=== PATIENT | male | born 1980 | race Caucasian/White ===

== ENCOUNTER 2016-08-31 08:23 | Emergency (ER) ==
[2016-08-31 08:26] VITALS: BP 143/82; TEMP 97.3; BMI 27.2
[2016-08-31] MEDS ORDERED: DECADRON 4 MG/ML SDV IM STA (08:31)
--- NOTE | 2016-08-31 08:34 | ED.PDOC ---
General ED Provider: Dr. ANA SCOTT-ER Chief Complaint: Bite Stated Complaint: i got stung by a wasp Time Seen by Physician: 08:33 Mode of Arrival: Walk-In Information Source: Patient Exam Limitations: No limitations Primary Care Provider: [facility] Nursing and Triage Documentation Reviewed and Agree: Yes Skin Complaint Exam - Skin/Soft Tissue Complaint/Exam Onset/Duration: yesterday Symptoms Are: Still present Timing: Constant Initial Severity: Mild Current Severity: Mild Location: right hand Character: Reports: Redness, Swelling, Raised, Painful Aggravating: Reports: None Alleviating: Reports: None Associated Signs and Symptoms: Reports: Tenderness, Red streaks. Denies: Fever , Chills, Itching, Drainage, Bruising, Joint swelling Related History: Reports: Insect bite/sting Related Surgical History: Reports: None Recent Exposure to Others w/Similar Symptoms: No Skin Findings: Present: Erythema Joint Tenderness Present: No Differential Diagnoses: Other Review of Systems - Review Of Systems Constitutional: Reports: No symptoms Eyes: Reports: No symptoms Ears, Nose, Mouth, Throat: Reports: No symptoms Respiratory: Reports: No symptoms Cardiac: Reports: No symptoms GI: Reports: No symptoms : Reports: No symptoms Musculoskeletal: Reports: No symptoms Skin: Reports: Lumps Neurological: Reports: No symptoms Endocrine: Reports: No symptoms Hematologic/Lymphatic: Reports: No symptoms All Other Systems: Reviewed and Negative Past Medical History - Past Medical History Previously Healthy: Yes Endocrine: Reports: None, Dyslipidemia Cardiovascular: Reports: Hypertension Respiratory: Reports: None Hematological: Reports: None Gastrointestinal: Reports: GERD Genitourinary: Reports: None Neuro/Psych: Reports: None Musculoskeletal: Reports: None Cancer: Reports: None - Surgical History General Surgical History: Reports: Appendectomy, Cholecystectomy - Family History Family History: Reports: Unknown - Social History Smoking Status: Current every day smoker, Heavy tobacco smoker Hx Substance Use: No Alcohol Screening: Occasionally Lives: With family Physical Exam - Physical Exam Appearance: Well-appearing, No pain distress, Well-nourished Eyes: MARYANNE, EOMI, Conjunctiva clear ENT: Ears normal, Nose normal, Oropharynx normal Neck: Supple Respiratory: Airway patent Cardiovascular: RRR, Pulses normal, No rub, No murmur GI/: Soft, Nontender, No masses, Bowel sounds normal, No Organomegaly Musculoskeletal: Normal strength, No edema, No calf tenderness, Limited ROM ( right hand(dorsum) swollen and erythematous ) Skin: Warm, Dry, Normal color Neurological: Sensation intact, Motor intact, Reflexes intact, Cranial nerves intact, Alert, Oriented Psychiatric: Affect appropriate, Mood appropriate Critical Care Note - Critical Care Note Total Time (mins): 0 Course - Course Orders, Labs, Meds: Orders Category Date Time Status Dexamethasone 4 mg/ml Inj [Decadron 4 mg/ml Sdv] MEDS 08/31/16 08:31 Stat 8 mg IM ONCE STA Medications Generic Name Dose Route Start Last Admin Trade Name Medina PRN Reason Stop Dose Admin Dexamethasone Sodium Phosphate 8 mg 08/31/16 08:31 Decadron 4 Mg/Ml Sdv IM 08/31/16 08:32 ONCE STA Vital Signs: Temp Pulse Resp BP Pulse Ox 08/31/16 08:23 97.3 F L 90 18 143/82 H 98 Departure - Departure Time of Disposition: 08:36 Disposition: HOME SELF-CARE Discharge Problem: Sting Instructions: Insect Bite or Sting (ED) Condition: Good Pt referred to PMD for follow-up: Yes Additional Instructions: benadryl and elevation today--in am start prednisone 20mgx 2 days then 10mg x 2 days then 5mg x 2 days Allergies/Adverse Reactions: Allergies codeine Allergy (Unknown, Verified 08/31/16 08:26) Unknown Penicillins Allergy (Unknown, Verified 08/31/16 08:26) Unknown Sulfa (Sulfonamide Antibiotics) Allergy (Unknown, Verified 08/31/16 08:26) Unknown Iodinated Contrast- Oral and IV Dye [Iodinated Contrast Media - IV Dye] Adverse Reaction (Verified 08/31/16 08:26) Disposition Discussed With: Patient
== END 2016-08-31 08:57 | disposition home or self-care (01) ==
LOC: ED 08:23
DX: T63.461A Toxic effect of venom of wasps, accidental (unintentional), initial encounter (principal); F17.210 Nicotine dependence, cigarettes, uncomplicated
CPT/HCPCS: 96372; 99282